=== PATIENT | male | born 1950 | race Caucasian/White ===

== ENCOUNTER → 2016-04-17 | Outpatient (CLI) | payer MEDICARE, OTHER ==
[~2016-04-17] MED LIST: FURO40TA4 PO; LOS50T PO; POT10T PO
[2016-04-17 12:55] LABS: Albumin 2.7 g/dL (3.4-5.0); BUN/Creatinine Ratio 16.1; Bilirubin, Total 0.4 mg/dL (0.2-1.0); Calcium 8.7 mg/dL (8.5-10.1); Potassium 3.4 mmol/L (3.5-5.1); Total Protein 6.1 g/dL (6.4-8.2)
[2016-04-17 14:39] LABS: White Blood Cell 3.8 10^3/uL (4.4-10.8)
[2016-04-17 14:40] LABS: Hematocrit 33.3 % (41.0-53.0); Hemoglobin 10.8 g/dL (13.5-17.5); Mean Corpuscular Hemoglobin 31.7 pg (28.0-32.0); Mean Corpuscular Hgb Conc. 32.5 g/dL (32.0-36.0); Mean Corpuscular Volume 97.6 fL (80.0-100.0); Mean Platelet Volume 8.6 fL (7.4-10.4); Metamyelocytes % 0; Myelocytes % 0; Platelet Count (auto) 302 10^3/uL (140-450); Promyelocytes % 0; Reactive Lymphocytes 0; Red Cell Distribution Width 21.8 % (11.6-16.0)
[2016-04-17 14:41] LABS: Anisocytosis Slight; Platelet Estimate Adequate
== END | disposition home or self-care (01) ==
LOC: LAB 11:11
PROVIDERS: ATTEND Internal Medicine
DX: C15.9 Malignant neoplasm of esophagus, unspecified (principal)
CPT/HCPCS: 36415; 80053; 83615; 85007; 85027

== ENCOUNTER → 2016-05-01 | Outpatient (CLI) | payer MEDICARE, OTHER ==
[2016-05-01 10:17] LABS: DEFINITIVE VIEW TRANSMISSION; Hemoglobin 9.8 g/dL (13.5-17.5); Mean Platelet Volume 9.6 fL (7.4-10.4); SUSPECT VIEW TRANSMISSION
[2016-05-01 10:19] LABS: Hematocrit 29.5 % (41.0-53.0); Mean Corpuscular Hemoglobin 31.9 pg (28.0-32.0); Mean Corpuscular Hgb Conc. 33.3 g/dL (32.0-36.0); Mean Corpuscular Volume 95.6 fL (80.0-100.0); Platelet Count (auto) 284 10^3/uL (140-450); White Blood Cell 2.2 10^3/uL (4.4-10.8)
[2016-05-01 10:24] LABS: Red Cell Distribution Width 22.6 % (11.6-16.0)
[2016-05-01 10:25] LABS: Metamyelocytes % 0; Myelocytes % 0; Promyelocytes % 0; Reactive Lymphocytes 0
[2016-05-01 10:43] LABS: Albumin 2.7 g/dL (3.4-5.0); BUN/Creatinine Ratio 25.7; Bilirubin, Total 0.5 mg/dL (0.2-1.0); Calcium 8.5 mg/dL (8.5-10.1); Potassium 3.4 mmol/L (3.5-5.1)
[2016-05-01 11:12] LABS: Anisocytosis Slight; Platelet Estimate Adequate
== END | disposition home or self-care (01) ==
LOC: LAB 09:54
PROVIDERS: ATTEND Internal Medicine
DX: C15.9 Malignant neoplasm of esophagus, unspecified (principal)
CPT/HCPCS: 36415; 80053; 83615; 85007; 85027; 85049

== ENCOUNTER → 2016-05-09 | Outpatient (CLI) | payer MEDICARE, OTHER ==
[2016-05-09 14:06] LABS: Basophils # (auto) 0 uL; DEFINITIVE VIEW TRANSMISSION; Eosinophils # (auto) 0 uL; Eosinophils % (auto) 0.7 % (0.0-7.0); Hemoglobin 10.7 g/dL (13.5-17.5); Lymphocytes # (auto) 0.6 uL; Lymphocytes % (auto) 19.6 % (10.0-50.0); Mean Corpuscular Hemoglobin 31.5 pg (28.0-32.0); Mean Corpuscular Hgb Conc. 32.5 g/dL (32.0-36.0); Mean Corpuscular Volume 96.8 fL (80.0-100.0); Mean Platelet Volume 9.2 fL (7.4-10.4); Monocytes # (auto) 0.4 uL; Monocytes % (auto) 12.4 % (0.0-12.0); Neutrophils # (auto) 1.9 uL; Neutrophils % (auto) 66.3 % (37.0-80.0); Platelet Count (auto) 351 10^3/uL (140-450); White Blood Cell 2.9 10^3/uL (4.4-10.8)
[2016-05-09 14:09] LABS: INR 1.04 (0.9-1.15); Partial Thromboplastin Time 25.7 sec (22.64-33.71); Prothrombin Time 10.7 sec (9.37-12.3)
[2016-05-09 14:13] LABS: B-Type Natriuretic Peptide 33.22 pg/mL (0-100)
[2016-05-09 14:14] LABS: Temperature: 22.7 C (20.0-25.0)
[2016-05-09 14:40] LABS: Albumin 2.8 g/dL (3.4-5.0); BUN/Creatinine Ratio 23.6; Bilirubin, Total 0.5 mg/dL (0.2-1.0); Calcium 9.1 mg/dL (8.5-10.1); Potassium 3.5 mmol/L (3.5-5.1); Total Protein 6.6 g/dL (6.4-8.2)
== END | disposition home or self-care (01) ==
LOC: LAB 12:49
PROVIDERS: ATTEND Internal Medicine
DX: R53.81 Other malaise (principal); C15.9 Malignant neoplasm of esophagus, unspecified
CPT/HCPCS: 36415; 80053; 82040; 83880; 84439; 84443; 85025; 85049; 85610; 85730

== ENCOUNTER → 2016-05-29 | Outpatient (CLI) | payer MEDICARE, OTHER ==
[2016-05-29 12:28] LABS: Basophils # (auto) 0 uL; Basophils % (auto) 0.2 % (0.0-2.0); DEFINITIVE VIEW TRANSMISSION; Eosinophils # (auto) 0 uL; Eosinophils % (auto) 0.4 % (0.0-7.0); Hematocrit 30.3 % (41.0-53.0); Hemoglobin 9.4 g/dL (13.5-17.5); Lymphocytes # (auto) 0.5 uL; Mean Corpuscular Hemoglobin 29.7 pg (28.0-32.0); Mean Corpuscular Volume 95.7 fL (80.0-100.0); Mean Platelet Volume 8.6 fL (7.4-10.4); Monocytes # (auto) 0.6 uL; Monocytes % (auto) 8.2 % (0.0-12.0); Neutrophils # (auto) 6.5 uL; Neutrophils % (auto) 85.2 % (37.0-80.0); Platelet Count (auto) 315 10^3/uL (140-450); Red Cell Distribution Width 22.6 % (11.6-16.0); White Blood Cell 7.6 10^3/uL (4.4-10.8)
== END | disposition home or self-care (01) ==
LOC: LAB 11:40
PROVIDERS: ATTEND Internal Medicine
DX: C15.9 Malignant neoplasm of esophagus, unspecified (principal)
CPT/HCPCS: 36415; 85025

== ENCOUNTER → 2016-06-12 | Outpatient (CLI) | payer MEDICARE, OTHER ==
[2016-06-12 14:41] LABS: Basophils # (auto) 0 uL; Basophils % (auto) 0.1 % (0.0-2.0); DEFINITIVE VIEW TRANSMISSION; Eosinophils # (auto) 0.1 uL; Eosinophils % (auto) 0.8 % (0.0-7.0); Hematocrit 34.2 % (41.0-53.0); Hemoglobin 11.1 g/dL (13.5-17.5); Lymphocytes # (auto) 0.6 uL; Lymphocytes % (auto) 9.2 % (10.0-50.0); Mean Corpuscular Hgb Conc. 32.6 g/dL (32.0-36.0); Mean Platelet Volume 8.1 fL (7.4-10.4); Monocytes # (auto) 0.7 uL; Monocytes % (auto) 10.2 % (0.0-12.0); Neutrophils # (auto) 5.1 uL; Neutrophils % (auto) 79.7 % (37.0-80.0); Platelet Count (auto) 399 10^3/uL (140-450); White Blood Cell 6.4 10^3/uL (4.4-10.8)
[2016-06-12 14:55] LABS: Red Cell Distribution Width 23.1 % (11.6-16.0)
[2016-06-12 15:00] LABS: Albumin 2.3 g/dL (3.4-5.0); Bilirubin, Total 0.5 mg/dL (0.2-1.0); Calcium 8.6 mg/dL (8.5-10.1); Potassium 3.2 mmol/L (3.5-5.1); Total Protein 6.6 g/dL (6.4-8.2)
[2016-06-12 17:27] LABS: Anisocytosis Moderate; Platelet Estimate Adequate
== END | disposition home or self-care (01) ==
LOC: LAB 14:27
PROVIDERS: ATTEND Internal Medicine
DX: C15.9 Malignant neoplasm of esophagus, unspecified (principal)
CPT/HCPCS: 36415; 80053; 83615; 85025

== ENCOUNTER → 2016-06-26 | Outpatient (CLI) | payer MEDICARE, OTHER ==
[2016-06-26 10:24] LABS: DEFINITIVE VIEW TRANSMISSION; Hematocrit 33.3 % (41.0-53.0); Hemoglobin 10.6 g/dL (13.5-17.5); Mean Corpuscular Hemoglobin 29.3 pg (28.0-32.0); Mean Corpuscular Hgb Conc. 31.7 g/dL (32.0-36.0); Mean Corpuscular Volume 92.4 fL (80.0-100.0); Mean Platelet Volume 8.5 fL (7.4-10.4); Platelet Count (auto) 294 10^3/uL (140-450); Red Cell Distribution Width 23.4 % (11.6-16.0); White Blood Cell 4.7 10^3/uL (4.4-10.8)
[2016-06-26 10:29] LABS: Metamyelocytes % 0; Myelocytes % 0; Promyelocytes % 0; Reactive Lymphocytes 0
[2016-06-26 13:29] LABS: Platelet Estimate Adequate
[2016-06-26 13:41] LABS: Anisocytosis Moderate; Burr Cells FEW; Ovalocytes FEW; Tear Drop Cells FEW
== END | disposition home or self-care (01) ==
LOC: LAB 09:30
PROVIDERS: ATTEND Internal Medicine
DX: C15.9 Malignant neoplasm of esophagus, unspecified (principal)
CPT/HCPCS: 36415; 85007; 85027

== ENCOUNTER → 2016-07-10 | Outpatient (CLI) | payer MEDICARE, OTHER ==
[2016-07-10 09:31] LABS: Basophils # (auto) 0 uL; Basophils % (auto) 0.5 % (0.0-2.0); DEFINITIVE VIEW TRANSMISSION; Eosinophils # (auto) 0 uL; Eosinophils % (auto) 0.8 % (0.0-7.0); Hematocrit 34.9 % (41.0-53.0); Hemoglobin 11.2 g/dL (13.5-17.5); Lymphocytes # (auto) 0.5 uL; Lymphocytes % (auto) 11.4 % (10.0-50.0); Mean Corpuscular Hemoglobin 28.8 pg (28.0-32.0); Mean Corpuscular Hgb Conc. 32.2 g/dL (32.0-36.0); Mean Corpuscular Volume 89.6 fL (80.0-100.0); Mean Platelet Volume 8.2 fL (7.4-10.4); Monocytes # (auto) 0.5 uL; Monocytes % (auto) 10.4 % (0.0-12.0); Neutrophils # (auto) 3.6 uL; Neutrophils % (auto) 76.9 % (37.0-80.0); Platelet Count (auto) 328 10^3/uL (140-450); White Blood Cell 4.7 10^3/uL (4.4-10.8)
[2016-07-10 09:45] LABS: Albumin 2.2 g/dL (3.4-5.0); BUN/Creatinine Ratio 16.2; Bilirubin, Total 0.6 mg/dL (0.2-1.0); Calcium 8.2 mg/dL (8.5-10.1); Potassium 3.4 mmol/L (3.5-5.1); Total Protein 6.6 g/dL (6.4-8.2)
[2016-07-10 10:17] LABS: Red Cell Distribution Width 23.3 % (11.6-16.0)
[2016-07-10 12:08] LABS: Anisocytosis Slight; Platelet Estimate Adequate
== END | disposition home or self-care (01) ==
LOC: LAB 08:53
PROVIDERS: ATTEND Internal Medicine
DX: C15.9 Malignant neoplasm of esophagus, unspecified (principal)
CPT/HCPCS: 36415; 80053; 83615; 85025

== ENCOUNTER → 2016-07-27 | Outpatient (CLI) | payer MEDICARE, OTHER ==
[2016-07-27 09:42] LABS: INR 0.99 (0.9-1.15); Partial Thromboplastin Time 28.2 sec (22.64-33.71); Prothrombin Time 10.7 sec (9.37-12.3)
== END | disposition home or self-care (01) ==
LOC: LAB 08:55
PROVIDERS: ATTEND Internal Medicine
DX: C15.9 Malignant neoplasm of esophagus, unspecified (principal); Z01.812 Encounter for preprocedural laboratory examination
CPT/HCPCS: 36415; 76942; 85610; 85730

== ENCOUNTER → 2016-08-07 | Outpatient (CLI) | payer MEDICARE, OTHER ==
[2016-08-07 12:36] LABS: Basophils # (auto) 0 uL; Basophils % (auto) 0.3 % (0.0-2.0); DEFINITIVE VIEW TRANSMISSION; Eosinophils # (auto) 0 uL; Eosinophils % (auto) 0.3 % (0.0-7.0); Hematocrit 36.2 % (41.0-53.0); Hemoglobin 11.5 g/dL (13.5-17.5); Lymphocytes # (auto) 0.6 uL; Lymphocytes % (auto) 10.2 % (10.0-50.0); Mean Corpuscular Hemoglobin 27.9 pg (28.0-32.0); Mean Corpuscular Hgb Conc. 31.8 g/dL (32.0-36.0); Mean Corpuscular Volume 87.8 fL (80.0-100.0); Mean Platelet Volume 8.6 fL (7.4-10.4); Monocytes # (auto) 0.6 uL; Monocytes % (auto) 10.7 % (0.0-12.0); Neutrophils # (auto) 4.6 uL; Neutrophils % (auto) 78.5 % (37.0-80.0); Platelet Count (auto) 312 10^3/uL (140-450); White Blood Cell 5.8 10^3/uL (4.4-10.8)
[2016-08-07 12:44] LABS: Albumin 2.1 g/dL (3.4-5.0); BUN/Creatinine Ratio 24.1; Bilirubin, Total 0.6 mg/dL (0.2-1.0); Calcium 8.1 mg/dL (8.5-10.1); Potassium 3.8 mmol/L (3.5-5.1); Total Protein 6.5 g/dL (6.4-8.2)
[2016-08-07 13:04] LABS: Red Cell Distribution Width 23.2 % (11.6-16.0)
[2016-08-07 13:52] LABS: Anisocytosis Slight; Platelet Estimate Adequate
== END | disposition home or self-care (01) ==
LOC: LAB 12:05
PROVIDERS: ATTEND Internal Medicine
DX: C15.9 Malignant neoplasm of esophagus, unspecified (principal)
CPT/HCPCS: 36415; 80053; 83615; 85025

== ENCOUNTER → 2016-08-22 | Outpatient (CLI) | payer MEDICARE, OTHER ==
[2016-08-22 09:37] LABS: Basophils # (auto) 0 uL; Basophils % (auto) 0.4 % (0.0-2.0); DEFINITIVE VIEW TRANSMISSION; Eosinophils # (auto) 0 uL; Eosinophils % (auto) 0.1 % (0.0-7.0); Hematocrit 36.2 % (41.0-53.0); Hemoglobin 11.5 g/dL (13.5-17.5); Lymphocytes # (auto) 0.7 uL; Lymphocytes % (auto) 10.3 % (10.0-50.0); Mean Corpuscular Hgb Conc. 31.8 g/dL (32.0-36.0); Mean Corpuscular Volume 88.1 fL (80.0-100.0); Mean Platelet Volume 8.8 fL (7.4-10.4); Monocytes # (auto) 0.8 uL; Monocytes % (auto) 12.2 % (0.0-12.0); Neutrophils # (auto) 4.9 uL; Platelet Count (auto) 324 10^3/uL (140-450); Red Cell Distribution Width 23.3 % (11.6-16.0); White Blood Cell 6.4 10^3/uL (4.4-10.8)
[2016-08-22 09:59] LABS: Albumin 2.1 g/dL (3.4-5.0); BUN/Creatinine Ratio 30.8; Bilirubin, Total 0.5 mg/dL (0.2-1.0); Calcium 8.5 mg/dL (8.5-10.1); Potassium 3.6 mmol/L (3.5-5.1); Total Protein 6.5 g/dL (6.4-8.2)
== END | disposition home or self-care (01) ==
LOC: LAB 09:19
PROVIDERS: ATTEND Internal Medicine
DX: C15.9 Malignant neoplasm of esophagus, unspecified (principal)
CPT/HCPCS: 36415; 80053; 83615; 85025

== ENCOUNTER → 2016-08-23 | Outpatient (CLI) | payer MEDICARE, OTHER ==
[2016-08-23 10:40] LABS: INR 1.04 (0.9-1.15); Prothrombin Time 11.2 sec (9.37-12.3)
== END | disposition home or self-care (01) ==
LOC: US 09:09
PROVIDERS: ATTEND Internal Medicine
DX: R18.8 Other ascites (principal); C25.9 Malignant neoplasm of pancreas, unspecified
CPT/HCPCS: 10022; 36415; 76942; 85610

== ENCOUNTER → 2016-09-05 | Outpatient (CLI) | payer MEDICARE, OTHER ==
[2016-09-05 09:02] LABS: Basophils # (auto) 0 uL; Basophils % (auto) 0.5 % (0.0-2.0); DEFINITIVE VIEW TRANSMISSION; Eosinophils # (auto) 0 uL; Eosinophils % (auto) 0.5 % (0.0-7.0); Hematocrit 37.1 % (41.0-53.0); Lymphocytes # (auto) 0.5 uL; Lymphocytes % (auto) 7.2 % (10.0-50.0); Mean Corpuscular Hemoglobin 28.1 pg (28.0-32.0); Mean Corpuscular Hgb Conc. 32.3 g/dL (32.0-36.0); Mean Platelet Volume 8.4 fL (7.4-10.4); Monocytes # (auto) 0.7 uL; Monocytes % (auto) 10.1 % (0.0-12.0); Neutrophils # (auto) 5.5 uL; Neutrophils % (auto) 81.7 % (37.0-80.0); Platelet Count (auto) 336 10^3/uL (140-450); White Blood Cell 6.7 10^3/uL (4.4-10.8)
[2016-09-05 09:08] LABS: Red Cell Distribution Width 22.8 % (11.6-16.0)
[2016-09-05 09:24] LABS: Albumin 1.9 g/dL (3.4-5.0); BUN/Creatinine Ratio 39.1; Bilirubin, Total 0.7 mg/dL (0.2-1.0); Calcium 8.3 mg/dL (8.5-10.1); Potassium 4.1 mmol/L (3.5-5.1); Total Protein 6.4 g/dL (6.4-8.2)
[2016-09-05 09:36] LABS: Platelet Estimate Adequate
[2016-09-05 09:37] LABS: Schistocytes FEW
[2016-09-05 09:38] LABS: Ovalocytes FEW
== END | disposition home or self-care (01) ==
LOC: LAB 08:44
PROVIDERS: ATTEND Internal Medicine
DX: C15.9 Malignant neoplasm of esophagus, unspecified (principal)
CPT/HCPCS: 36415; 80053; 83615; 85025